=== PATIENT | female | born 1945 | race Caucasian/White ===

== ENCOUNTER → 2020-01-08 | Outpatient (CLI) | payer MEDICARE ==
--- NOTE | 2020-01-09 14:56 | MM ---
Reason for exam: screening (asymptomatic). Last mammogram was performed 10 years and 8 months ago. History: Patient is postmenopausal. Took estrogen for 12 years. Physical Findings: A clinical breast exam by your physician is recommended on an annual basis and results should be correlated with mammographic findings. MG 3D Screening Mammo W/Cad Bilateral CC and MLO view(s) were taken. No prior studies available for comparison. The breast tissue is heterogeneously dense. This may lower the sensitivity of mammography. Finding: There is an equal density (isodense), indistinct round mass located 4 cm from the nipple in the outer quadrant, middle position of the right breast on CC view. ASSESSMENT: Incomplete: need additional imaging evaluation, BI-RAD 0 RECOMMENDATION: Special view mammogram of the right breast. If lesion persists on supplemental views, image directed ultrasound is recommended. [facility] will attempt to contact patient to return for supplemental views and ultrasound if indicated.
== END | disposition home or self-care (01) ==
LOC: RADMAMWWP 09:46
PROVIDERS: ATTEND Family Medicine
DX: Z12.31 Encounter for screening mammogram for malignant neoplasm of breast (principal)
CPT/HCPCS: 77063; 77067

== ENCOUNTER → 2020-01-30 | Outpatient (CLI) | payer MEDICARE ==
--- NOTE | 2020-02-02 09:32 | MM ---
Reason for exam: additional evaluation requested from abnormal screening. Last mammogram was performed 1 month ago. History: Patient is postmenopausal. Took estrogen for 12 years. Physical Findings: Nurse did not find any significant physical abnormalities on exam. MG 3D Work Up W/Cad RT Spot compression CC and spot compression MLO view(s) were taken of the right breast. Prior study comparison: January 08, 2020, bilateral MG 3d screening mammo w/cad. May 20, 2009, bilateral digital screening mammogram. The breast tissue is heterogeneously dense. This may lower the sensitivity of mammography. There is no discrete abnormality including area of concern outer right MLO view. These results were verbally communicated with the patient and result sheet given to the patient on 01/30/20. ASSESSMENT: Probably benign, BI-RAD 3 RECOMMENDATION: Follow-up diagnostic mammogram of the right breast in 6 months.
== END | disposition home or self-care (01) ==
LOC: RADMAMWWP 14:42
PROVIDERS: ATTEND Family Medicine
DX: R92.8 Other abnormal and inconclusive findings on diagnostic imaging of breast (principal)
CPT/HCPCS: 77065; G0279; 77061

== ENCOUNTER → 2021-01-24 | Outpatient (CLI) | payer MEDICARE ==
--- NOTE | 2021-01-25 11:43 | MM ---
Reason for exam: additional evaluation requested from prior study. Last mammogram was performed 1 year ago. History: Patient is postmenopausal. Took estrogen for 12 years. Physical Findings: Nurse did not find any significant physical abnormalities on exam. MG 3D Diag Mammo W/Cad FINA Bilateral CC and MLO view(s) were taken. Prior study comparison: January 30, 2020, right breast MG 3d work up w/cad RT. January 08, 2020, bilateral MG 3d screening mammo w/cad. The breast tissue is heterogeneously dense. This may lower the sensitivity of mammography. Lateral asymmetric density is stable for a year. Additional follow up recommended. No significant new findings when compared with previous films. These results were verbally communicated with the patient and result sheet given to the patient on 01/24/21. ASSESSMENT: Probably benign, BI-RAD 3 RECOMMENDATION: Follow-up diagnostic mammogram of both breasts in 1 year.
== END | disposition home or self-care (01) ==
LOC: RADMAMWWP 14:50
PROVIDERS: ATTEND Family Medicine
DX: R92.8 Other abnormal and inconclusive findings on diagnostic imaging of breast (principal)
CPT/HCPCS: 77066; G0279; 77062

== ENCOUNTER 2022-02-21 13:11 | Emergency (ER) | payer MEDICARE ==
[2022-02-21 13:31] VITALS: TEMP 97.5
[2022-02-21] MEDS ORDERED: DIPH,PERTUS(ACELL)TETVAC-LF 0.5 ML VIAL IM ONE (14:03)
--- NOTE | 2022-02-21 14:59 | CT ---
EXAMINATION TYPE: CT facial bones wo con DATE OF EXAM: 02/21/2022 COMPARISON: None HISTORY: pain after fall. brusied nose and orbits. Scanned by PK CT DLP: combined 1100.1 mGycm Automated exposure control for dose reduction was used. TECHNIQUE: CT scan of the sinuses is performed without contrast, axial images are obtained, coronal r eformatted images are also reviewed. FINDINGS: Minimal mucosal thickening involving the maxillary sinus small mucous retention cyst or dorene yp on the right.. The ostiomeatal complex is patent bilaterally on the coronal images. Nasal septal deviation noted. There is a linear lucency through the nasal regions correlate nondepressed nasal chuyita dge fracture. Slight deformity of the maxillary style line at the base of the nasal passage may repre sent additional tiny chip fracture Visualized portion of mastoid air cells show no abnormal opacification. The globes are intact bilate rally. Multilevel hypertrophic degenerative changes in the spine. Small soft tissue hematoma overly ing the frontal bone. Hyperostosis of the calvarium. IMPRESSION: 1. There is a minimally displaced nasal bridge fracture. Chip fracture of the maxillary styloid in th e differential diagnosis at the base of the nasal passage correlate clinically. 2. Small soft tissue hematoma overlying the frontal bone
--- NOTE | 2022-02-21 14:59 | CT ---
EXAMINATION TYPE: CT brain luciano anaya DATE OF EXAM: 02/21/2022 COMPARISON: None HISTORY: pain after fall. Bruised nose and orbits. scanned by PK CT DLP: combined 1100.[address] of the brain was performed. The ventricles, basal cisterns and sulci overlying the cerebral convexities demonstrate mild enlargem ent. There is no evidence for intracranial hemorrhage or sulcal effacement. There is decreased attenuatio n about the periventricular white matter and deep white matter of both cerebral hemispheres, compatib le with chronic small vessel ischemia. No mass effects are seen. If symptoms persist consider MRI. Osseous calvarium is intact. Frontal scalp hematoma. IMPRESSION: 1. Age related atrophic and chronic small vessel ischemic change without acute intracranial process seen at this time. CT Cervical Spine: Unenhanced CT of the cervical spine was performed with bone and soft tissue window settings submitted . Coronal and sagittal reconstruction is obtained. There is normal alignment and prevertebral soft tissues. No evidence for acute cervical fracture . Scattered degenerative disc disease and spondylosis. Biapical scarring. IMPRESSION: 1. No evidence for acute fracture or subluxation of the cervical spine.
--- NOTE | 2022-02-21 15:07 | ED ---
Fall HPI - General Chief Complaint: Fall Stated Complaint: fall, facial injury on thinners Time Seen by Provider: 02/21/22 13:53 Source: patient, RN notes reviewed Mode of arrival: ambulatory Limitations: no limitations - History of Present Illness Initial Comments: 76-year-old female presents emergency Department chief complaint of trip and fall. Patient states that she dropped her Swifter for states that she tripped over falling forward. Patient did strike head, face she is a noted abrasion unsure when her last tetanus was. Patient states she does take Coumadin which is referred emergency department. Patient states that she had her Coumadin checked yesterday and it was within normal limits. Patient denies excessive headache states that she has mild facial pain, nasal pain. Patient denies any epistaxis denies any neck pain denies any extremity injury. - Related Data Home Medications Medication Instructions Recorded Confirmed Aspirin EC [Ecotrin Low Dose] 81 mg PO DAILY 02/21/22 02/21/22 Atorvastatin [Lipitor] 20 mg PO DAILY 02/21/22 02/21/22 Biotin [Biotin Disolve] 10,000 mcg PO DAILY 02/21/22 02/21/22 Cholecalciferol [Vitamin D3 (25 50 mcg PO DAILY 02/21/22 02/21/22 Mcg = 1000 Iu)] Digoxin [Digitek] 125 mcg PO DAILY 02/21/22 02/21/22 Dronedarone HCl [Multaq] 400 mg PO BID 02/21/22 02/21/22 Ferrous Sulfate [Feosol] 325 mg PO DAILY 02/21/22 02/21/22 Levothyroxine Sodium [Synthroid] 75 mcg PO DAILY 02/21/22 02/21/22 Omeprazole [PriLOSEC] 20 mg PO DAILY 02/21/22 02/21/22 Potassium Chloride ER [K-Dur 20] 20 meq PO BID 02/21/22 02/21/22 Torsemide [Demadex] 20 mg PO BID 02/21/22 02/21/22 Warfarin [Coumadin] 2.5 mg PO MOTUWEFRSA@209902/21/22 02/21/22 Warfarin [Coumadin] 5 mg PO SUTH@209902/21/22 02/21/22 allopurinoL [Zyloprim] 300 mg PO DAILY 02/21/22 02/21/22 carvediloL [Coreg] 12.5 mg PO BID 02/21/22 02/21/22 Allergies Allergy/AdvReac Type Severity Reaction Status Date / Time oxycodone [From Percocet] AdvReac Nausea Verified 02/21/22 14:54 Review of Systems ROS Statement: Those systems with pertinent positive or pertinent negative responses have been documented in the HPI. ROS Other: All systems not noted in ROS Statement are negative. Past Medical History Additional Past Medical History / Comment(s): pulmonary htn, rheumatic fever History of Any Multi-Drug Resistant Organisms: None Reported Past Surgical History: Coronary Bypass/CABG Additional Past Surgical History / Comment(s): aortic and mitral valve replace Past Psychological History: No Psychological Hx Reported Smoking Status: Never smoker Past Alcohol Use History: None Reported Past Drug Use History: None Reported General Exam Limitations: no limitations General appearance: alert, in no apparent distress Head exam: Present: atraumatic, normocephalic, normal inspection Eye exam: Present: normal appearance, PERRL, EOMI, periorbital swelling (Mild bilaterally). Absent: scleral icterus, conjunctival injection, periorbital tenderness ENT exam: Present: mucous membranes moist. Absent: normal exam (Nasal swelling, abrasion noted, ecchymosis and mild tenderness) Neck exam: Present: normal inspection, full ROM. Absent: tenderness, meningismus, lymphadenopathy Respiratory exam: Present: normal lung sounds bilaterally. Absent: respiratory distress, wheezes, rales, rhonchi, stridor Extremities exam: Present: normal inspection, full ROM, normal capillary refill. Absent: tenderness, pedal edema, joint swelling, calf tenderness Back exam: Absent: CVA tenderness (R), CVA tenderness (L) Neurological exam: Present: alert, oriented X3, CN II-XII intact, reflexes normal. Absent: motor sensory deficit Skin exam: Present: warm, dry, intact, normal color. Absent: rash Course Vital Signs 02/21/22 13:25 Temperature 97.5 F L Pulse Rate 85 Respiratory 16 Rate Blood Pressure 132/62 O2 Sat by Pulse 95 Oximetry Medical Decision Making - Medical Decision Making 68-year-old presented trip and fall. Patient has patient's tetanus updated CT interpreted by me and radiology evidence of nasal on chip fracture. She has no epistaxis. Patient we discharged in stable condition return parameters discussed. Disposition Clinical Impression: Fall, Facial contusion, Nasal fracture Disposition: HOME SELF-CARE Condition: Stable Instructions (If sedation given, give patient instructions): Nasal Fracture (ED), Head Injury (ED) Additional Instructions: Please return to the Emergency Department if symptoms worsen or any other concerns. Is patient prescribed a controlled substance at d/c from ED?: No Referrals: Sayra Weber DO [Primary Care Provider] - 1-2 days Shelton Wyatt MD [STAFF PHYSICIAN] - 1-2 days Time of Disposition: 15:07
[2022-02-21 15:18] VITALS: BP 146/76; PULSE 84; RESP 18
== END 2022-02-21 15:18 | disposition home or self-care (01) ==
LOC: EC 13:11
DX: S00.83XA Contusion of other part of head, initial encounter (principal); S02.2XXA Fracture of nasal bones, initial encounter for closed fracture; Z88.5 Allergy status to narcotic agent; Z23 Encounter for immunization; W01.0XXA Fall on same level from slipping, tripping and stumbling without subsequent striking against object, initial encounter
CPT/HCPCS: 70450; 70486; 72125; 90471; 90715; 99283

== ENCOUNTER → 2022-08-19 | Outpatient (CLI) | payer MEDICARE ==
[2022-08-19 23:50] LABS: HCT 45.1 % (37.2-46.3); HGB 14.1 d/dL (12.0-15.0); MCH 31.3 pg (27.0-32.0); MCHC 31.3 d/dL (32.0-37.0); MCV 100.2 FL (80.0-97.0); Mean Platelet Volume 12.9 FL (9.5-12.2); NRBC Per 100 WBC 0 X 10*3/uL (0.00-0.01); Platelet Count 140 X 10*3/uL (140-440); RDW 13.5 % (11.5-14.5); WBC 7.11 X 10*3/uL (4.50-10.00)
[2022-08-20 08:21] LABS: ALT 44 U/L (8-44); AST 42 U/L (13-35); Albumin 4.3 d/dL (3.8-4.9); Albumin/Globulin Ratio 1.54 Ratio (1.60-3.17); Alkaline Phosphatase 89 U/L (41-126); Blood Urea Nitrogen 17.8 mg/dL (9.0-27.0); Calcium 9.7 mg/dL (8.7-10.3); Carbon Dioxide 31.3 mmol/L (21.6-31.8); Chloride 99 mmol/L (96-109); Chol/HDL Ratio 2.14 Ratio; Globulin 2.8 d/dL (1.6-3.3); Glucose 115 mg/dL (70-110); LDL Cholesterol,Calculated 51.9 mg/dL (0.0-131.0); Potassium 3.7 mmol/L (3.5-5.5); Sodium 143 mmol/L (135-145); Total Bilirubin 0.8 mg/dL (0.3-1.2); Total Protein 7.1 d/dL (6.2-8.2)
== END | disposition home or self-care (01) ==
LOC: LABWHC1 10:41
PROVIDERS: ATTEND Internal Medicine Cardiovascular Disease
DX: I49.5 Sick sinus syndrome (principal); I27.20 Pulmonary hypertension, unspecified; I48.19 Other persistent atrial fibrillation; E78.5 Hyperlipidemia, unspecified; R06.09 Other forms of dyspnea
CPT/HCPCS: 36415; 80053; 80061; 84443; 85027

== ENCOUNTER 2022-12-26 14:05 | Emergency (ER) | payer MEDICARE ==
[2022-12-26 14:53] LABS: Anisocytosis Slight; Basophils % (A) 0 %; Eosinophils # (A) 0.1 k/uL (0-0.7); Eosinophils % (A) 2 %; HCT 24.9 % (34.0-46.0); HGB 8.1 gm/dL (11.4-16.0); Hypochromasia Moderate; Lymphocytes # (A) 1.1 k/uL (1.0-4.8); Lymphocytes % (A) 13 %; MCH 32.6 pg (25.0-35.0); MCHC 32.4 g/dL (31.0-37.0); MCV 100.6 fL (80.0-100.0); Macrocytosis Moderate; Monocytes # (A) 0.4 k/uL (0-1.0); Monocytes % (A) 5 %; Neutrophils # (A) 6.3 k/uL (1.3-7.7); Neutrophils % (A) 77 %; Platelet Count 214 k/uL (150-450); Poikilocytosis Slight; RBC 2.47 m/uL (3.80-5.40); WBC 8.2 k/uL (3.8-10.6)
[2022-12-26 15:06] LABS: ALT 18 U/L (4-34); AST 38 U/L (14-36); African American GFR (CKD) 58 (>60 ml/min/1.73 sqM); Alkaline Phosphatase 73 U/L (38-126); Anion Gap 12 mmol/L; Blood Urea Nitrogen 34 mg/dL (7-17); Calcium 8.9 mg/dL (8.4-10.2); Carbon Dioxide 27 mmol/L (22-30); Chloride 95 mmol/L (98-107); Glucose 122 mg/dL (74-99); Non-African American GFR(CKD) 50 (>60 ml/min/1.73 sqM); Potassium 3.9 mmol/L (3.5-5.1); Sodium 134 mmol/L (137-145); Total Bilirubin 1.3 mg/dL (0.2-1.3); Total Protein 6.6 g/dL (6.3-8.2)
[2022-12-26 16:00] LABS: INR 2.2 (<1.2)
--- NOTE | 2022-12-26 16:11 | ED ---
General Adult HPI - General Chief complaint: GI Bleed Stated complaint: fatigue Time Seen by Provider: 12/26/22 15:50 Source: patient, family, RN notes reviewed Mode of arrival: wheelchair Limitations: no limitations - History of Present Illness Initial comments: Patient is a pleasant 77-year-old female presenting to the emergency department with fatigue. Onset of symptoms was 3 or 4 days ago. Patient also has exertional dyspnea. Patient has been noticing dark stools for the past couple of weeks. No abdominal pain. Patient is on Coumadin secondary to history of heart valve replacement. - Related Data Home Medications Medication Instructions Recorded Confirmed Aspirin EC [Ecotrin Low Dose] 81 mg PO DAILY 02/21/22 02/21/22 Atorvastatin [Lipitor] 20 mg PO DAILY 02/21/22 02/21/22 Biotin [Biotin Disolve] 10,000 mcg PO DAILY 02/21/22 02/21/22 Cholecalciferol [Vitamin D3 (25 50 mcg PO DAILY 02/21/22 02/21/22 Mcg = 1000 Iu)] Digoxin [Digitek] 125 mcg PO DAILY 02/21/22 02/21/22 Dronedarone HCl [Multaq] 400 mg PO BID 02/21/22 02/21/22 Ferrous Sulfate [Feosol] 325 mg PO DAILY 02/21/22 02/21/22 Levothyroxine Sodium [Synthroid] 75 mcg PO DAILY 02/21/22 02/21/22 Omeprazole [PriLOSEC] 20 mg PO DAILY 02/21/22 02/21/22 Potassium Chloride ER [K-Dur 20] 20 meq PO BID 02/21/22 02/21/22 Torsemide [Demadex] 20 mg PO BID 02/21/22 02/21/22 Warfarin [Coumadin] 2.5 mg PO MOTUWEFRSA@209902/21/22 02/21/22 Warfarin [Coumadin] 5 mg PO SUTH@2100 02/21/22 02/21/22 allopurinoL [Zyloprim] 300 mg PO DAILY 02/21/22 02/21/22 carvediloL [Coreg] 12.5 mg PO BID 02/21/22 02/21/22 Previous Rx's Medication Instructions Recorded traMADol HCl [Ultram] 50 mg PO Q6H PRN #12 tab 02/21/22 Allergies Allergy/AdvReac Type Severity Reaction Status Date / Time oxycodone [From Percocet] AdvReac Nausea Verified 12/26/22 14:13 Review of Systems ROS Statement: Those systems with pertinent positive or pertinent negative responses have been documented in the HPI. ROS Other: All systems not noted in ROS Statement are negative. Constitutional: Denies: fever Eyes: Denies: eye pain ENT: Denies: ear pain Respiratory: Reports: as per HPI. Denies: cough Endocrine: Reports: fatigue Gastrointestinal: Reports: melena. Denies: abdominal pain Musculoskeletal: Denies: back pain Skin: Denies: rash Neurological: Denies: weakness Past Medical History Additional Past Medical History / Comment(s): pulmonary htn, rheumatic fever History of Any Multi-Drug Resistant Organisms: None Reported Past Surgical History: Coronary Bypass/CABG Additional Past Surgical History / Comment(s): aortic and mitral valve replace Past Psychological History: No Psychological Hx Reported Smoking Status: Never smoker Past Alcohol Use History: None Reported Past Drug Use History: None Reported General Exam Limitations: no limitations General appearance: alert, in no apparent distress Head exam: Present: normocephalic Eye exam: Present: normal appearance Neck exam: Present: normal inspection Respiratory exam: Present: normal lung sounds bilaterally Cardiovascular Exam: Present: regular rate, normal rhythm GI/Abdominal exam: Present: soft. Absent: tenderness Rectal exam: Present: black stool Extremities exam: Present: normal inspection Neurological exam: Present: alert Psychiatric exam: Present: normal affect, normal mood Skin exam: Present: normal color Course Vital Signs 12/26/22 14:08 Temperature 97.7 F Pulse Rate 92 Respiratory 20 Rate Blood Pressure 124/72 O2 Sat by Pulse 99 Oximetry EKG Findings - EKG Results: EKG: interpreted by ERMD (Paced rhythm with a rate of 69. Left axis. Wide- complex QRS. Nonspecific ST-T.) Medical Decision Making - Medical Decision Making Was pt. sent in by a medical professional or institution (, PA, RETORT OPERATOR, urgent care, hospital, or long term...) When possible be specific @ -No Did you speak to anyone other than the patient for history (EMS, parent, family, police, friend...)? What history was obtained from this source @ -Family is present and helps provide history. Did you review nursing and triage notes (agree or disagree)? Why? @ -I reviewed and agree with nursing and triage notes Were old charts reviewed (outside hosp., previous admission, EMS record, old EKG, old radiological studies, urgent care reports/EKG's, long term records)? Report findings @ -No old charts were reviewed Differential Diagnosis (chest pain, altered mental status, abdominal pain women, abdominal pain men, vaginal bleeding, weakness, fever, dyspnea, syncope, headache, dizziness, GI bleed, back pain, seizure, CVA, palpatations, mental health, musculoskeletal)? @ -Differential GI Bleed: Esophageal varices, aortoenteric fistula, Mercedes-Benson, gastritis, peptic ulcer disease, diverticulosis, inflammatory bowel disease, hemorrhoids, fissure, colitis, malignancy, Meckels diverticulum, this is not meant to be an all- inclusive list. EKG interpreted by me (3pts min.). @ -As above X-rays interpreted by me (1pt min.). @ -None done CT interpreted by me (1pt min.). @ -None done U/S interpreted by me (1pt. min.). @ -None done What testing was considered but not performed or refused? (CT, X-rays, U/S, labs)? Why? @ -None What meds were considered but not given or refused? Why? @ -None Did you discuss the management of the patient with other professionals (professionals i.e. , PA, RETORT OPERATOR, lab, RT, psych nurse, social media designer, electrician wiring, t eacher, precinct commanding officer, rn case manager hospice)? Give summary @ -Case was discussed with Dr. Redd, who does recommend transfer secondary to no GI covered case also discussed with Dr. Regan at [facility] who will accept transfer. Was smoking cessation discussed for >3mins.? @ -No Was critical care preformed (if so, how long)? @ -No Were there social determinants of health that impacted care today? How? (Homelessness, low income, unemployed, alcoholism, drug addiction, transportation, low edu. Level, literacy, decrease access to med. care, halfway, rehab)? @ -No Was there de-escalation of care discussed even if they declined (Discuss DNR or withdrawal of care, Hospice)? DNR status @ -No What co-morbidities impacted this encounter? (DM, HTN, Smoking, COPD, CAD, Cancer, CVA, ARF, Chemo, Hep., AIDS, mental health diagnosis, sleep apnea, morbid obesity)? @ -None Was patient admitted / discharged? Hospital course, mention meds given and route, prescriptions, significant lab abnormalities, going to OR and other pertinent info. @ -Patient reevaluated. Patient is stable. Patient will be transferred for GI evaluation and possible endoscopy. Patient and family are made aware. Undiagnosed new problem with uncertain prognosis? @ -No Drug Therapy requiring intensive monitoring for toxicity (Heparin, Nitro, Insulin, Cardizem)? @ -No Were any procedures done? @ -No Diagnosis/symptom? @ -Lower GI hemorrhage Acute, or Chronic, or Acute on Chronic? @ -Acute Uncomplicated (without systemic symptoms) or Complicated (systemic symptoms)? @ -default Side effects of treatment? @ -No Exacerbation, Progression, or Severe Exacerbation? @ -No Poses a threat to life or bodily function? How? (Chest pain, USA, VT, pneumonia, PE, COPD, DKA, ARF, appy, cholecystitis, CVA, Diverticulitis, Homicidal, Suicidal, threat to staff... and all critical care pts) @ -No - Lab Data Result diagrams: 12/26/22 14:45 12/26/22 14:45 Lab Results 12/26/22 12/26/22 12/26/22 Range/Units 14:45 14:45 14:45 WBC 8.2 (3.8-10.6) k/uL RBC 2.47 L (3.80-5.40) m/uL Hgb 8.1 L (11.4-16.0) gm/dL Hct 24.9 L (34.0-46.0) % MCV 100.6 H (80.0-100.0) fL MCH 32.6 (25.0-35.0) pg MCHC 32.4 (31.0-37.0) g/dL RDW 18.0 H (11.5-15.5) % Plt Count 214 (150-450) k/uL MPV 9.0 Neutrophils % 77 % Lymphocytes % 13 % Monocytes % 5 % Eosinophils % 2 % Basophils % 0 % Neutrophils # 6.3 (1.3-7.7) k/uL Lymphocytes # 1.1 (1.0-4.8) k/uL Monocytes # 0.4 (0-1.0) k/uL Eosinophils # 0.1 (0-0.7) k/uL Basophils # 0.0 (0-0.2) k/uL Hypochromasia Moderate Poikilocytosis Slight Anisocytosis Slight Macrocytosis Moderate PT (10.0-12.5) sec INR (<1.2) APTT 26.9 (22.0-30.0) sec Sodium 134 L (137-145) mmol/L Potassium 3.9 (3.5-5.1) mmol/L Chloride 95 L (98-107) mmol/L Carbon Dioxide 27 (22-30) mmol/L Anion Gap 12 mmol/L BUN 34 H (7-17) mg/dL Creatinine 1.06 H (0.52-1.04) mg/dL Est GFR (CKD-EPI)AfAm 58 (>60 ml/min/1.73 sqM) Est GFR (CKD-EPI)NonAf 50 (>60 ml/min/1.73 sqM) Glucose 122 H (74-99) mg/dL Calcium 8.9 (8.4-10.2) mg/dL Total Bilirubin 1.3 (0.2-1.3) mg/dL AST 38 H (14-36) U/L ALT 18 (4-34) U/L Alkaline Phosphatase 73 (38-126) U/L Troponin I (0.000-0.034) ng/mL Total Protein 6.6 (6.3-8.2) g/dL Albumin 4.0 (3.5-5.0) g/dL Stool Occult Blood (Negative) 12/26/22 12/26/22 12/26/22 Range/Units 14:45 15:50 16:16 WBC (3.8-10.6) k/uL RBC (3.80-5.40) m/uL Hgb (11.4-16.0) gm/dL Hct (34.0-46.0) % MCV (80.0-100.0) fL MCH (25.0-35.0) pg MCHC (31.0-37.0) g/dL RDW (11.5-15.5) % Plt Count (150-450) k/uL MPV Neutrophils % % Lymphocytes % % Monocytes % % Eosinophils % % Basophils % % Neutrophils # (1.3-7.7) k/uL Lymphocytes # (1.0-4.8) k/uL Monocytes # (0-1.0) k/uL Eosinophils # (0-0.7) k/uL Basophils # (0-0.2) k/uL Hypochromasia Poikilocytosis Anisocytosis Macrocytosis PT 22.0 H (10.0-12.5) sec INR 2.2 H (<1.2) APTT (22.0-30.0) sec Sodium (137-145) mmol/L Potassium (3.5-5.1) mmol/L Chloride (98-107) mmol/L Carbon Dioxide (22-30) mmol/L Anion Gap mmol/L BUN (7-17) mg/dL Creatinine (0.52-1.04) mg/dL Est GFR (CKD-EPI)AfAm (>60 ml/min/1.73 sqM) Est GFR (CKD-EPI)NonAf (>60 ml/min/1.73 sqM) Glucose (74-99) mg/dL Calcium (8.4-10.2) mg/dL Total Bilirubin (0.2-1.3) mg/dL AST (14-36) U/L ALT (4-34) U/L Alkaline Phosphatase (38-126) U/L Troponin I 0.013 (0.000-0.034) ng/mL Total Protein (6.3-8.2) g/dL Albumin (3.5-5.0) g/dL Stool Occult Blood Positive H (Negative) Disposition Clinical Impression: Lower GI hemorrhage Disposition: OTHER INSTITUTION NOT DEFINED Condition: Serious Is patient prescribed a controlled substance at d/c from ED?: No Referrals: Sayra Weber DO [Primary Care Provider] - 1-2 days Time of Disposition: 16:47 - Out of Hospital Transfer - Req. Specs Out of Hospital Transfer - Requested Specifics: Other Emergency Center
[2022-12-26] MEDS ORDERED: PANTOPRAZOLE 40 MG/10 ML VIAL IVP STA (16:15)
[2022-12-26 18:41] VITALS: RESP 18
[2022-12-26 18:58] VITALS: BP 122/47; PULSE 69; TEMP 98.1
== END 2022-12-26 18:50 | disposition other institution (70) ==
LOC: EC 14:05
DX: K92.2 Gastrointestinal hemorrhage, unspecified (principal); Z79.82 Long term (current) use of aspirin; Z88.8 Allergy status to other drugs, medicaments and biological substances; Z95.1 Presence of aortocoronary bypass graft
CPT/HCPCS: 36415; 93005; 86900; 86901; 80053; 84484; 85025; 85610; 85730; 86850; 86920; 82272; 99285; 96374; 36430; P9016; C9113

== ENCOUNTER → 2022-12-26 | Outpatient (CLI) | payer MEDICARE ==
--- NOTE | 2022-12-26 10:04 | US ---
EXAMINATION TYPE: US carotid duplex BILAT DATE OF EXAM: 12/26/2022 COMPARISON: NONE CLINICAL INDICATION: Female, 77 years old with history of R42 DIZZINESS AND GIDDINESS; Dizziness. TECHNIQUE: Carotid duplex ultrasound examination. Indirect Doppler criteria was utilized. FINDINGS: EXAM MEASUREMENTS: RIGHT: Peak Systolic Velocity (PSV) cm/sec ----- Right CCA: 90.8 ----- Right ICA: 106.9 ----- Right ECA: 97.8 ICA/CCA ratio: 1.2 RIGHT: End Diastole cm/sec ----- Right CCA: 17.1 ----- Right ICA: 31.8 ----- Right ECA: 8.5 LEFT: Peak Systolic Velocity (PSV) cm/sec ----- Left CCA: 90.8 ----- Left ICA: 120.5 ----- Left ECA: 116.0 ICA/CCA ratio: 1.3 LEFT: End Diastole cm/sec ----- Left CCA: 18.2 ----- Left ICA: 47.8 ----- Left ECA: 0.0 VERTEBRALS (direction of flow): Right Vertebral: Antegrade Left Vertebral: Antegrade Rhythm: Normal DIRECT MAIL COORDINATOR NOTES: Minimal plaque seen within bilateral bulbs. No elevated velocities at this time. IMPRESSION: No evidence for hemodynamically significant stenosis. Criteria for Assigning % of Stenosis / Diameter reduction (Estimation based on the indirect measurements of the internal carotid artery velocities (ICA PSV). 1. Normal (no stenosis)=ICA PSV < 125 cm/s: ratio < 2.0: ICA EDV<40 cm/s. 2. Less than 50% stenosis=ICA PSV < 125 cm/s: ratio < 2.0: ICA EDV<40 cm/s. 3. 50 to 69% stenosis=ICA PSV of 125 to 230 cm/s: ration 2.0 ? 4.0: ICA EDV 40-100 cm/s. 4. Greater than 70% stenosis to near occlusion= ICA PSV > 230 cm/s: ratio > 4.0: ICA EDV > 100 cm/s. 5. Near occlusion= ICA PSV velocities may be low or undetectable: variable ratio and ICA EDV. 6. Total occlusion=unable to detect flow.
== END | disposition home or self-care (01) ==
LOC: RADUSWWP 07:28
PROVIDERS: ATTEND Family Medicine
DX: R42 Dizziness and giddiness (principal)
CPT/HCPCS: 93880

== ENCOUNTER → 2023-12-12 | Outpatient (CLI) | payer MEDICARE ==
--- NOTE | 2023-12-13 10:17 | BD ---
EXAMINATION TYPE: Axial Bone Density DATE OF EXAM: 12/12/2023 CLINICAL HISTORY: 78 years old Female. ICD-10 CODE: Z78.0 Post elizabeth Height: 63.5 Weight: 157.1 FRAX RISK QUESTIONS: Alcohol (3 or more units per day): no Family History (Parent hip fracture): no Glucocorticoids (More than 3mos): no (Ex: prednisone, prednisolone, methylprednisolone, dexamethasone, and hydrocortisone). History of Fracture in Adulthood:ankle Secondary Osteoporosis: 1. Type 1 Diabetes: no 2. Hyperthyroidism: no 3. Menopause before 45: yes 4. Malnutrition: no 5. Chronic liver disease: no Rheumatoid Arthritis: no Current Tobacco Use: no RISK FACTORS HISTORY OF: Hip Fracture (Right/Left): no Spine Fracture: no History of Wrist Fracture: no Surgery to Spine/Hip(right/left)/Wrist (right/left): no MEDICATIONS: Thyroid Medications: Synthroid How Long: past 40 years Osteoporosis Medications: no EXAM MEASUREMENTS: Bone mineral densitometry was performed using the [employer] System. Bone mineral density as measured about the Lumbar spine is: ----- L1-L4(G/cm2): 1.138 T Score Values are as follows: ----- L1: -0.8 ----- L2: -0.7 ----- L3: 0.1 ----- L4: -0.4 ----- L1-L4: -0.4 Z Score Values are as follows: ----- L1: 0.8 ----- L2: 1.0 ----- L3: 1.8 ----- L4: 1.2 ----- L1-L4: 1.3 Baseline Study Bone mineral density about the R hip (g/cm2): 0.788 Bone mineral density about the L hip (g/cm2): 0.730 T Score values are as follows: -----R Neck: -2.7 -----L Neck: -1.9 -----R Total: -2.2 -----L Total: -1.3 Z Score values are as follows: -----R Neck: -0.7 -----L Neck: 0.2 -----R Total: -0.3 -----L Total: 0.6 Baseline Study FRAX%s: The graph provided illustrates a 30.0% chance for a major osteoporotic fx and a 10.7% chance for the hips probability for fx in 10 years time. IMPRESSION: Osteopenia (T Score between -2.5 and -1). There is slightly increased risk of fracture and the patient may be considered for treatment. Re-Screen 2-5 years. NOTE: T-SCORE=SD OF THE YOUNG ADULT MEAN. [facility], , 12/13/2023 10:15 AM
--- NOTE | 2023-12-13 11:08 | MM ---
Reason for Exam: Screening (asymptomatic). Last mammogram was performed 2 year(s) and 11 month(s) ago. Patient History: Menarche at age 11. First Full-Term at age 22. Left ovary removed at age 45. Right ovary removed at age 45. Hysterectomy at age 45. Postmenopausal. Patient used Estrogen for 12 years. Sister had ovarian cancer, age 78. Risk Values: Jeana 5 year model risk: 1.5%. NCI Lifetime model risk: 2.3%. Prior Study Comparison: 05/20/2009 Bilateral Screening Mammogram, [facility]. 01/08/2020 Bilateral Screening Mammogram, [facility]. 01/30/2020 Right Diagnostic Mammogram, [facility]. 01/24/2021 Bilateral Diagnostic Mammogram, [facility]. Tissue Density: The breasts are heterogeneously dense, which may obscure small masses. Findings: Analyzed By CAD. There is no suspicious group of microcalcifications or new suspicious mass in either breast. Overall Assessment: Benign, BI-RAD 2 Management: Screening Mammogram of both breasts in 1 year. . Patient should continue monthly self-breast exams. A clinical breast exam by your physician is recommended on an annual basis. This exam should not preclude additional follow-up of suspicious palpable abnormalities. Note on Jeana scores and lifetime risk: 1. A Jeana score greater than 3% is considered moderate risk. If this is the case, consider specialist referral to assess eligibility for a risk reducing agent. 2. If overall lifetime risk for the development of breast cancer is 20% or higher, the patient may qualify for future screening with alternating mammogram and breast MRI. [facility], , 12/13/2023 11:05 AM. Electronically signed and approved by: Julian Napier M.D. [facility]
== END | disposition home or self-care (01) ==
LOC: RADMAMWWP 12:23
PROVIDERS: ATTEND Family Medicine
CPT/HCPCS: 77063; 77067; 77080